=== PATIENT | male | born 1975 | race Caucasian/White ===

== ENCOUNTER 2017-09-13 22:36 | Emergency (ER) | payer OTHER ==
[2017-09-13 22:42] VITALS: BP 128/75; PULSE 85; TEMP 98.6; BMI 25.8
--- NOTE | 2017-09-13 22:57 | PDOC ---
History of Present Illness - General Chief Complaint: Cold Symptoms Stated Complaint: COUGHING/SOB Time Seen by Provider: 09/13/17 22:45 - History of Present Illness Initial Comments: 09/13/17 22:51 CHIEF COMPLAINT: cough HISTORY OF PRESENT ILLNESS: 42 yo M with no PMH presents to ED with persistent, productive, worsening cough x 1 week. Patient reports "chills maybe a week ago , but I took one Motrin and it went away." Patient denies fever, N/V/D, chest pain, shortness of breath. PAST MEDICAL HISTORY: Denies past medical history FAMILY HISTORY: Denies SOCIAL HISTORY: Denies tobacco, alcohol, illicit drug use. SURGICAL HISTORY: Denies ALLERGIES: No known drug allergies REVIEW OF SYSTEMS General/Constitutional:Chills 1 week ago, none now. Denies fever. Denies weakness, weight change. HEENT: Denies change in vision. Denies ear pain or discharge. Denies sore throat. Cardiovascular: Denies chest pain or shortness of breath. Respiratory: Productive cough x 1 week, worsening today. Denies wheezing, or hemoptysis. Gastrointestinal: Denies nausea, vomiting, diarrhea or constipation. Denies rectal bleeding. Genitourinary: Denies dysuria, frequency, or change in urination. Musculoskeletal: Denies joint or muscle swelling or pain. Denies neck or back pain. Skin and breasts: Denies rash or easy bruising. PHYSICAL EXAM General Appearance: Well-appearing, appropriately dressed. No apparent distress. HEENT: EOMI, PERRLA, normal ENT inspection, normal voice, TMs normal, pharynx normal. No conjunctival pallor. No photophobia, scleral icterus. Respiratory/Chest: Lungs CTAB. No shortness of breath, chest tenderness, respiratory distress, accessory muscle use. No crackles, rales, rhonchi, stridor , wheezing, dullness Cardiovascular: RRR. S1, S2. Musculoskeletal/Extremities: Normal inspection. FROM of all extremities, normal capillary refill. Pelvis Stable. No CVA tenderness. No tenderness to extremities, pedal edema, swelling, erythema or deformity. Integumentary: Appropriate color, dry, warm. No cyanosis, erythema, jaundice or rash Neurologic: journeyman meat cutter II-XII intact. Fully oriented, alert. Appropriate mood/affect. Motor strength 5/5. No appreciable EOM palsy, facial droop or sensory deficit. Past History - Past Medical History Allergies/Adverse Reactions: Allergies Allergy/AdvReac Type Severity Reaction Status Date / Time No Known Allergies Allergy Verified 09/13/17 22:40 Home Medications: Ambulatory Orders Ciprofloxacin [Cipro -] 500 mg PO Q12H #20 tablet 06/10/16 Azithromycin [Zithromax 250mg Tablets -] 250 mg PO ASDIR #6 tab 09/13/17 COPD: No - Immunization History Immunization Up to Date: Yes - Suicide/Smoking/Psychosocial Hx Smoking History: Current every day smoker Have you smoked in the past 12 months: Yes Number of Cigarettes Smoked Daily: 20 Information on smoking cessation initiated: No Hx Alcohol Use: No Drug/Substance Use Hx: No Substance Use Type: None *Physical Exam - Vital Signs Last Vital Signs Temp Pulse Resp BP Pulse Ox 98.6 F 85 18 128/75 98 09/13/17 22:40 09/13/17 22:40 09/13/17 22:40 09/13/17 22:40 09/13/17 22:40 Medical Decision Making - Medical Decision Making 09/13/17 22:54 42 yo M with no PMH presents to ED with persistent, productive, worsening cough x 1 week. VS stable. Patient is well appearing, exam grossly unremarkable. Likely viral cough, but given duration of symptoms will rx antibiotics for acute bronchitis. -z pack rx sent to pharm. Advised patient to take medications as prescribed and f/u with PCP if symptoms persist past 3-5 days. Patient verbalized understanding and agrees to plan. *DC/Admit/Observation/Transfer Diagnosis at time of Disposition: Bronchitis - Discharge Dispostion Disposition: HOME Condition at time of disposition: Stable Admit: No - Prescriptions Prescriptions: Azithromycin [Zithromax 250mg Tablets -] 250 mg PO ASDIR #6 tab - Referrals Referrals: Cuong Fournier MD [Staff Physician] - - Patient Instructions Printed Discharge Instructions: DI for Acute Bronchitis Additional Instructions: Please take medications as prescribed. As discussed, please follow up with a primary care doctor if symptoms persist past 3-5 days. If you develop fever, chills, vomiting, diarrhea, rash, wheezing, chest pain, shortness of breath, or any new or worsening symptoms, please return to the ER. - Post Discharge Activity
== END 2017-09-13 23:19 | disposition home or self-care (01) ==
LOC: JER 22:36
DX: J40 Bronchitis, not specified as acute or chronic (principal)
CPT/HCPCS: 99281-25

== ENCOUNTER 2020-07-17 23:09 | Emergency (ER) | payer OTHER ==
[2020-07-17 23:16] VITALS: BP 128/87; PULSE 71; TEMP 98.6; BMI 26.3
--- OUTSIDE RECORDS SUMMARY | 2020-07-17 23:28 | XMS ---
:1975 Author Organization [facility] Support Name Relationship Address Phone UE Unavailable Unavailable Unavailable [address] [facility] [place] [address] Re-disclosure Warning The records that you are about to access may contain information from federally- assisted alcohol or drug abuse programs. If such information is present, then the following federally mandated warning applies: This information has been disclosed to you from records protected by federal confidentiality rules (42 CFR part 2). The federal rules prohibit you from making any further disclosure of this information unless further disclosure is expressly permitted by the written consent of the person to whom it pertains or as otherwise permitted by 42 CFR part 2. A general authorization for the release of medical or other information is NOT sufficient for this purpose. The Federal rules restrict any use of the information to criminally investigate or prosecute any alcohol or drug abuse patient.The records that you are about to access may contain highly sensitive health information, the redisclosure of which is protected by Article 27-F of the [facility] Public Health law. If you continue you may haveaccess to information: Regarding HIV / AIDS; Provided by facilities licensed or operated by the [facility] Office of Mental Health; or Provided by the [facility] Office for People With Developmental Disabilities. If such information is present, then the following [facility] mandated warning applies: This information has been disclosed to you from confidential records which are protected by state law. State law prohibits you from making any further disclosure of this information without the specific written consent of the person to whom it pertains, or as otherwise permitted by law. Any unauthorized further disclosure in violation of state law may result in a fine or residential sentence or both. A general authorization for the release of medical or other information is NOT sufficient authorization for further disclosure. Insurance Providers Payer name Policy type Policy ID Covered Covered green party's Policy P sharmila / Coverage green party ID relationship to [place] [employer] ormation type [id number] SP [id number]
[2020-07-18] MEDS ORDERED: SODIUM CHLORIDE 0.9% 500 ML INFUS.BAG IV ONE (00:01)
--- NOTE | 2020-07-18 00:01 | PDOC ---
Documentation entered by Leonel Good SCRIBE, acting as scribe for Alexsandra Cohen MD. Alexsandra Cohen MD: This documentation has been prepared by the Patrick gregory Angel, SCRIBE, under my direction and personally reviewed by me in its entirety. I confirm that the documentation accurately reflects all work, treatment, procedures, and medical decision making performed by me. Attending Attestation - Resident Resident Name: Zeferino Viera - ED Attending Attestation I have performed the following: I have examined & evaluated the patient, The case was reviewed & discussed with the resident, I agree w/resident's findings & plan, Exceptions are as noted - HPI HPI: 07/18/20 00:02 This 45 yo male experienced vertigo today with a feeling that the room is spinning ,He has no focal neuro deficits HPI he went to Urgent care and they referred him to the emergency dept - Physicial Exam PE: 07/18/20 00:04 wnwd 45 yo male in no acute distress head ncat eyes bg no nystgmus neck supple lungs cta b/l cvs [id number] lungs cta b/l abdomen nontender skin warm and dry neuro axox3 ambulatory, motor strength 5/5 b/l - Medical Decision Making 07/18/20 01:05 the pt states he doesn't feel back to baseline but his vertigo resolved, he has no PCP but goes to urgent care centers when he has a problem he denies chest pain or shortness of breath. Pt d/c home 07/22/20 17:19 Discharge - Discharge Information Problems reviewed: Yes Clinical Impression/Diagnosis: Weakness generalized Fatigue Qualifiers: Fatigue type: unspecified Qualified Code(s): R53.83 - Other fatigue Condition: Improved Disposition: HOME - Follow up/Referral [place] [facility] [place] [facility] [place] Group] - Patient Discharge Instructions Additional Instructions: Please make a follow up appointment with your primary care physician (referrals provided here) in the next week to follow up on your thyroid hormone levels. Please keep yourself as hydrated and well nourished as possible. If you experience any new, worsening, or concerning symptoms, including chest pain, shortness of breath, dizziness, or any other concerns, please return to the emergency department. - Post Discharge Activity
--- NOTE | 2020-07-18 00:05 | PDOC ---
History of Present Illness - General Chief Complaint: Weakness Stated Complaint: REF BY DOCTOR Time Seen by Provider: 07/17/20 23:43 - History of Present Illness Initial Comments: Jose Woods is a 45 y/o male with no reported PMH presenting today with generalized weakness and fatigue. Reports that at around 4pm he started feeling tired and fatigued. States that he went to urgent care and was sent to the ED for further evaluation. Reports that the weakness has improved but was instructed to present to the ED by urgent care. Pt denies chest pain/shortness of breath. No headache/dizziness/vision changes. No nausea/vomiting. No abdominal pain. No back pain. No lower extremity swelling. No urinary or stool symptoms. SocHx: daily smoker FamHx: none, no family cardiac hx Past History - Medical History Allergies/Adverse Reactions: Allergies Allergy/AdvReac Type Severity Reaction Status Date / Time No Known Allergies Allergy Verified 09/13/17 22:40 Home Medications: Ambulatory Orders Ciprofloxacin [Cipro -] 500 mg PO Q12H #20 tablet 06/10/16 Azithromycin [Zithromax 250mg Tablets -] 250 mg PO ASDIR #6 tab 09/13/17 COPD: No - Immunization History Immunization Up to Date: Yes - Psycho-Social/Smoking History Smoking History: Current every day smoker Have you smoked in the past 12 months: Yes Number of Cigarettes Smoked Daily: 15 Information on smoking cessation initiated: Yes - Substance Abuse Hx (Audit-C & DAST Scrn) How often the patient has a drink containing alcohol: Never Score: In Men: 4 or > Positive; In Women: 3 or > Positive: 0 Screen Result (Pos requires Nsg. Audit-10AR): Negative In the last yr the pt used illegal drug/Rx for NonMed reason: No Score: Yes response is considered Positive: 0 Screen Result (Positive result requires Nsg. DAST-10): Negative Review of Systems - Review of Systems Comments:: GENERAL/CONSTITUTIONAL: No fever or chills. Reports generalized weakness and malaise. HEAD, EYES, EARS, NOSE AND THROAT: No change in vision. No change in hearing. No sore throat._ CARDIOVASCULAR: No chest pain or shortness of breath_ RESPIRATORY: Denies cough, hemoptysis_ GASTROINTESTINAL: No nausea, vomiting, diarrhea or constipation._ GENITOURINARY: No dysuria, frequency, or change in urination._ MUSCULOSKELETAL: No joint or muscle swelling or pain. No neck or back pain._ SKIN: No rash_ NEUROLOGIC: No headache, vertigo, loss of consciousness, or change in stre ngth/sensation._ ENDOCRINE: No increased thirst. No abnormal weight change_ HEMATOLOGIC/LYMPHATIC: No anemia, easy bleeding, or history of blood clots._ ALLERGIC/IMMUNOLOGIC: No hives or skin allergy._ *Physical Exam - Vital Signs Last Vital Signs Temp Pulse Resp BP Pulse Ox 98.6 F 71 20 128/87 100 07/17/20 23:12 07/17/20 23:12 07/17/20 23:12 07/17/20 23:12 07/17/20 23:12 - Physical Exam GENERAL: Awake, alert, and oriented to person/place/time, in no acute distress_ HEAD: No signs of trauma, normocephalic, atraumatic _ EYES: PERRLA, EOMI, sclera anicteric, conjunctiva clear_ ENT: Hearing grossly normal, nares patent, oropharynx clear without exudates. No uvular deviation. Moist mucosa_ NECK: Normal ROM, supple, no lymphadenopathy, JVD, or masses_ LUNGS: No distress, speaks in full sentences, clear to auscultation bilaterally _ HEART: Regular rate and rhythm, normal S1 and S2, no murmurs appreciated, peripheral pulses normal and equal bilaterally._ ABDOMEN: Soft, nontender, normoactive bowel sounds. No guarding, no rebound. No masses_ EXTREMITIES: Normal inspection, Normal range of motion, no edema. No clubbing or cyanosis_ NEUROLOGICAL: Cranial nerves II through XII grossly intact. Normal speech, normal gait, no focal sensorimotor deficits _ SKIN: Warm, Dry, normal turgor, no rashes or lesions noted_ ED Treatment Course - LABORATORY CBC & Chemistry Diagram: 07/18/20 00:50 07/18/20 00:50 - RADIOLOGY Radiology Studies Ordered: Category Date Time Status CHEST X-RAY PORTABLE* [RAD] Stat Radiology 07/17/20 23:51 Ordered Medical Decision Making - Medical Decision Making 45M no reported PMH presenting today with generalized weakness and fatigue. Reports that his symptoms have improved but he was sent in by urgent care. -cbc, cmp -ekg, trop, cxr -tsh -fluids 07/18/20 00:04 EKG shows 61 bpm, sinus rhythm with 1st degree AV block, early repolarization, no axis deviation, NV 210, QTc 402, no ST elevation/depression. Prior EKG reviewed. 07/18/20 02:09 CXR negative for acute intrathoracic pathology. No significant interval change compared to prior. Labs reviewed. Laboratory Last Values WBC 8.2 K/mm3 (4.0-10.0) 07/18/20 00:50 RBC 4.91 M/mm3 (4.00-5.60) 07/18/20 00:50 Hgb 14.8 GM/dL (11.7-16.9) 07/18/20 00:50 Hct 42.7 % (35.4-49) 07/18/20 00:50 MCV 86.9 fl (80-96) 07/18/20 00:50 MCH 30.2 pg (25.7-33.7) 07/18/20 00:50 MCHC 34.7 g/dl (32.0-35.9) 07/18/20 00:50 RDW 13.7 % (11.9-15.9) 07/18/20 00:50 Plt Count 187 K/MM3 (134-434) D 07/18/20 00:50 MPV 9.0 fl (7.5-11.1) 07/18/20 00:50 Absolute Neuts (auto) 4.2 K/mm3 (1.5-8.0) 07/18/20 00:50 Neutrophils % 51.1 % (42.8-82.8) 07/18/20 00:50 Lymphocytes % 38.2 % (8-40) 07/18/20 00:50 Monocytes % 7.4 % (3.8-10.2) 07/18/20 00:50 Eosinophils % 2.5 % (0-4.5) 07/18/20 00:50 Basophils % 0.8 % (0-2.0) 07/18/20 00:50 Nucleated RBC % 0 % (0-0) 07/18/20 00:50 Sodium 140 mmol/L (136-145) 07/18/20 00:50 Potassium 4.1 mmol/L (3.5-5.1) 07/18/20 00:50 Chloride 106 mmol/L (98-107) 07/18/20 00:50 Carbon Dioxide 28 mmol/L (21-32) 07/18/20 00:50 Anion Gap 6 MMOL/L (8-16) L 07/18/20 00:50 BUN 26.4 mg/dL (7-18) H 07/18/20 00:50 Creatinine 0.9 mg/dL (0.55-1.3) 07/18/20 00:50 Est GFR (CKD-EPI)AfAm 117.47 07/18/20 00:50 Est GFR (CKD-EPI)NonAf 101.35 07/18/20 00:50 Random Glucose 85 mg/dL (74-106) 07/18/20 00:50 Calcium 8.7 mg/dL (8.5-10.1) 07/18/20 00:50 Total Bilirubin 0.3 mg/dL (0.2-1) 07/18/20 00:50 AST 19 U/L (15-37) 07/18/20 00:50 ALT 20 U/L (13-61) 07/18/20 00:50 Alkaline Phosphatase 66 U/L (45-117) 07/18/20 00:50 Creatine Kinase 120 U/L (26-308) 07/18/20 00:50 Troponin I < 0.02 ng/ml (0.00-0.05) 07/18/20 00:50 Total Protein 7.1 g/dl (6.4-8.2) 07/18/20 00:50 Albumin 3.6 g/dl (3.4-5.0) 07/18/20 00:50 TSH 4.14 uIU/ml (0.358-3.74) H 07/18/20 00:50 07/18/20 02:42 Pt reassessed. Plan to d/c home with PCP f/u for thyroid levels. Reports significant improvement with fluids. All questions answered. Return precautions given. Pt verbalized understanding and agreement with plan. Discharge - Discharge Information Problems reviewed: Yes Clinical Impression/Diagnosis: Weakness generalized Fatigue Qualifiers: Fatigue type: unspecified Qualified Code(s): R53.83 - Other fatigue Condition: Improved Disposition: HOME - Admission No - Follow up/Referral Referrals: [facility] [place] [facility] [Provider Group] - Patient Discharge Instructions Additional Instructions: Please make a follow up appointment with your primary care physician (referrals provided here) in the next week to follow up on your thyroid hormone levels. Please keep yourself as hydrated and well nourished as possible. If you experience any new, worsening, or concerning symptoms, including chest pain, shortness of breath, dizziness, or any other concerns, please return to the emergency department. - Post Discharge Activity
[2020-07-18] MEDS ORDERED: NALOXONE HCL 0.4 MG/ML VIAL IVPUSH ONE (00:07)
[2020-07-18 01:05] LABS: BASO % 0.8 % (0-2.0); EOS % 2.5 % (0-4.5); HEMATOCRIT 42.7 % (35.4-49); HEMOGLOBIN 14.8 GM/dL (11.7-16.9); LYMPH % 38.2 % (8-40); MCH 30.2 pg (25.7-33.7); MCHC 34.7 g/dl (32.0-35.9); MEAN CELL VOLUME 86.9 fl (80-96); MONO % 7.4 % (3.8-10.2); NEUT % 51.1 % (42.8-82.8); PLATELET COUNT 187 K/MM3 (134-434); RBC 4.91 M/mm3 (4.00-5.60); RDW 13.7 % (11.9-15.9); WHITE BLOOD COUNT 8.2 K/mm3 (4.0-10.0)
[2020-07-18 01:34] LABS: ALBUMIN 3.6 g/dl (3.4-5.0); ALK PHOS 66 U/L (45-117); ANION GAP 6 MMOL/L (8-16); BILIRUBIN,TOTAL 0.3 mg/dL (0.2-1); BLOOD UREA NITROGEN 26.4 mg/dL (7-18); CALCIUM 8.7 mg/dL (8.5-10.1); CHLORIDE 106 mmol/L (98-107); CO2 28 mmol/L (21-32); CREATININE 0.9 mg/dL (0.55-1.3); GLUCOSE,RANDOM 85 mg/dL (74-106); POTASSIUM 4.1 mmol/L (3.5-5.1); SGOT/AST 19 U/L (15-37); SGPT/ALT 20 U/L (13-61); SODIUM 140 mmol/L (136-145); TOT PROT 7.1 g/dl (6.4-8.2)
--- NOTE | 2020-07-18 09:01 | EKG ---
Test Reason : Blood Pressure : / mmHG Vent. Rate : 061 BPM Atrial Rate : 061 BPM P-R Int : 210 ms QRS Dur : 088 ms QT Int : 400 ms P-R-T Axes : 050 061 049 degrees QTc Int : 402 ms SINUS RHYTHM WITH 1ST DEGREE A-V BLOCK EARLY REPOLARIZATION OTHERWISE NORMAL ECG WHEN COMPARED WITH ECG OF 09-JUN-2016 22:04, MS INTERVAL HAS INCREASED VENT. RATE HAS DECREASED BY 35 BPM Confirmed by MD CLAIRE, KE ([id number]) on 07/18/2020 9:00:59 AM Referred By: Confirmed By:KE RANGEL MD
== END 2020-07-18 03:20 | disposition home or self-care (01) ==
LOC: JER 23:09
DX: R53.1 Weakness (principal); R53.83 Other fatigue
CPT/HCPCS: 36415; 71045-TC-FY; 80053; 82550; 84443; 84484; 85025; 93005; 93010; 99285-25

== ENCOUNTER 2022-04-01 15:29 | Emergency (ER) | payer OTHER ==
[2022-04-01 15:36] VITALS: BP 147/80; PULSE 106; TEMP 98.6; BMI 25.0
[2022-04-01] MEDS ORDERED: IBUPROFEN 600 MG TABLET (FP) PO ONE ×2 (17:12→17:14)
== END 2022-04-01 17:42 | disposition home or self-care (01) ==
LOC: JER 15:29 → JERFT 15:29
DX: M25.562 Pain in left knee (principal); M25.561 Pain in right knee; V03.10XA Pedestrian on foot injured in collision with car, pick-up truck or van in traffic accident, initial encounter
CPT/HCPCS: 73562-TC-LT-FY; 73562-TC-RT-FY; 99284-25